=== PATIENT | male | born 1985 | race Caucasian/White ===

== ENCOUNTER 2016-07-25 16:00 | Emergency (ER) | payer OTHER ==
[~2016-07-25] VITALS: Ht 182.9 cm; Wt 88.0 kg
[2016-07-25 16:09] VITALS: BP 114/82
== END 2016-07-25 17:04 | disposition home or self-care (01) ==
LOC: ER 16:12
DX: L25.9 Unspecified contact dermatitis, unspecified cause (principal); B02.9 Zoster without complications